=== PATIENT | female | born 1970 | race Caucasian/White ===

== ENCOUNTER 2016-10-04 14:35 | Emergency (ER) | payer BC, OTHER, SELFPAY ==
[2016-10-04] MEDS ORDERED: Ketorolac 30 MG/ML SDV IVPUSH ONE (15:00)
[2016-10-04] MEDS ORDERED: Sodium Chloride 0.9% 1,000 ML IV ONE (15:00)
[2016-10-04] MEDS ORDERED: Ondansetron 4 MG/2 ML SDV IVPUSH ONE (15:00)
--- NOTE | 2016-10-04 15:01 | EDM.PDOC ---
ED HPI GENERAL MEDICAL PROBLEM - General Chief Complaint: Abdominal Pain Stated Complaint: UNK Time Seen by Provider: 10/04/16 15:00 Source of Information: Reports: Patient - History of Present Illness INITIAL COMMENTS - FREE TEXT/NARRATIVE: HISTORY AND PHYSICAL: History of present illness: [] Patient presents with abdominal pain intermittently over the last month over last couple days it has increased in severity for some time today shed 10 out of 10 lower abdominal crampy pain, 2 days prior she had loose stool this is resolved she has a normal formed stool no blood per rectum per patient Patient was seen in mind that through [facility] flat and upright abdomen was performed she was told that time she had constipation she has been using [id number] laxatives since Patient has also been trying a gluten-free diet No fever nausea vomiting chills sweats Review of systems: As per history of present illness and below otherwise all systems reviewed and negative. Past medical history: As per history of present illness and as reviewed below otherwise noncontributory. Surgical history: As per history of present illness and as reviewed below otherwise noncontributory. Social history: No reported history of drug or alcohol abuse. Family history: As per history of present illness and as reviewed below otherwise noncontributory. Physical exam: HEENT: Atraumatic, normocephalic, pupils reactive, negative for conjunctival pallor or scleral icterus, mucous membranes moist, throat clear, neck supple, nontender, trachea midline. Lungs: Clear to auscultation, breath sounds equal bilaterally, chest nontender. Heart: S1S2, regular, negative for clicks, rubs, or JVD. Abdomen: Soft, nondistended, nontender. Negative for masses or hepatosplenomegaly. Negative for costovertebral tenderness. Pelvis: Stable nontender. Genitourinary: Deferred. Rectal: Deferred. Extremities: Atraumatic, negative for cords or calf pain. Neurovascular unremarkable. Neuro: Awake, alert, oriented. Cranial nerves II through XII unremarkable. Cerebellum unremarkable. Motor and sensory unremarkable throughout. Exam nonfocal. Diagnostics: [] Lab as below CT abdomen pelvis with contrast Therapeutics: [] [id number] symptomatic therapy is discussed Impression: [] Abdominal pain Definitive disposition and diagnosis as appropriate pending reevaluation and review of above. Bilateral Lower Abdomen Pain Score (Numeric/FACES): 10 - Related Data Allergies Allergy/AdvReac Type Severity Reaction Status Date / Time No Known Allergies Allergy Verified 10/04/16 15:03 Home Meds: Home Meds Fluticasone Propionate [Flonase] 1 puff NASBOTH DAILY 10/04/16 [History] Levothyroxine Sodium [Synthroid] 112 mcg PO ACBREAKFAST 10/04/16 [History] Losartan/Hydrochlorothiazide [Losartan-HCTZ 50-12.5 MG] 1 each PO DAILY [History] PARoxetine [Paxil] 20 mg PO DAILY 10/04/16 [History] ED ROS GENERAL - Review of Systems Review Of Systems: ROS reveals no pertinent complaints other than HPI. ED EXAM, GENERAL - Physical Exam Exam: See Below Course - Vital Signs Last Recorded V/S: Last Vital Signs Temp 36.6 C 10/04/16 15:08 Pulse 72 10/04/16 15:08 Resp 16 10/04/16 15:08 BP 168/80 H 10/04/16 15:08 Pulse Ox 96 10/04/16 15:08 - Orders/Labs/Meds Orders: Active Orders 24 hr Category Date Time Status Abdomen Pelvis w Cont [CT] Stat Exams 10/04/16 15:36 Taken Labs: Laboratory Tests 10/04/16 10/04/16 10/04/16 Range/Units 15:08 15:08 16:25 WBC 7.26 (4.0-11.0) K/uL RBC 4.37 (4.30-5.90) M/uL Hgb 13.2 (12.0-16.0) g/dL Hct 40.3 (36.0-46.0) % MCV 92.2 (80.0-98.0) fL MCH 30.2 (27.0-32.0) pg MCHC 32.8 (31.0-37.0) g/dL RDW Std Deviation 46.2 (28.0-62.0) fl RDW Coeff of Arianne 14 (11.0-15.0) % Plt Count 297 (150-400) K/uL MPV 10.90 (7.40-12.00) fL Neut % (Auto) 63.6 (48.0-80.0) % Lymph % (Auto) 24.2 (16.0-40.0) % [place] % (Auto) 7.6 (0.0-15.0) % Eos % (Auto) 3.9 (0.0-7.0) % Baso % (Auto) 0.7 (0.0-1.5) % Neut # 4.6 (1.4-5.7) K/uL Lymph # 1.8 (0.6-2.4) K/uL [place] # 0.6 (0.0-0.8) K/uL Eos # 0.3 (0.0-0.7) K/uL Baso # 0.1 (0.0-0.1) K/uL Nucleated RBC % 0.0 /100WBC Nucleated RBCs # 0 K/uL Sodium 137 (136-146) mmol/L Potassium 3.7 (3.5-5.1) mmol/L Chloride 102 (98-110) mmol/L Carbon Dioxide 25 (21-31) mmol/L BUN 9 (6.0-23.0) mg/dL Creatinine 0.8 (0.6-1.5) mg/dL Est Cr Clr Drug Dosing 94.01 mL/min Estimated GFR (MDRD) > 60.0 ml/min Glucose 84 (60-110) mg/dL Calcium 9.2 (8.8-10.8) mg/dL Total Bilirubin 0.5 (0.1-1.5) mg/dL AST 19 (5-40) IU/L ALT 18 (8-54) IU/L Alkaline Phosphatase 84 (40-150) Total Protein 7.6 (6.0-8.0) g/dL Albumin 3.8 (3.5-5.0) g/dL Globulin 3.8 H (2.0-3.5) g/dL Albumin/Globulin Ratio 1.0 L (1.3-2.8) Amylase 65 (10-90) U/L Lipase 22 (7-80) U/L Urine Color Urine Appearance Urine pH (5.0-8.0) Ur Specific [place] (1.001-1.035) Urine Protein (NEGATIVE) mg/dL Urine Glucose (UA) (NEGATIVE) mg/dL Urine Ketones (NEGATIVE) mg/dL Urine Occult Blood (NEGATIVE) Urine Nitrite (NEGATIVE) Urine Bilirubin (NEGATIVE) Urine Urobilinogen (<2.0) EU/dL Ur Leukocyte Esterase (NEGATIVE) Urine RBC (0-2/HPF) Urine WBC (0-5/HPF) Ur Epithelial Cells (NONE-FEW) Urine Bacteria (NEGATIVE) Urine HCG, Qual NEGATIVE (NEGATIVE) 10/04/16 Range/Units 16:25 WBC (4.0-11.0) K/uL RBC (4.30-5.90) M/uL Hgb (12.0-16.0) g/dL Hct (36.0-46.0) % MCV (80.0-98.0) fL MCH (27.0-32.0) pg MCHC (31.0-37.0) g/dL RDW Std Deviation (28.0-62.0) fl RDW Coeff of Arianne (11.0-15.0) % Plt Count (150-400) K/uL MPV (7.40-12.00) fL Neut % (Auto) (48.0-80.0) % Lymph % (Auto) (16.0-40.0) % [place] % (Auto) (0.0-15.0) % Eos % (Auto) (0.0-7.0) % Baso % (Auto) (0.0-1.5) % Neut # (1.4-5.7) K/uL Lymph # (0.6-2.4) K/uL [place] # (0.0-0.8) K/uL Eos # (0.0-0.7) K/uL Baso # (0.0-0.1) K/uL Nucleated RBC % /100WBC Nucleated RBCs # K/uL Sodium (136-146) mmol/L Potassium (3.5-5.1) mmol/L Chloride (98-110) mmol/L Carbon Dioxide (21-31) mmol/L BUN (6.0-23.0) mg/dL Creatinine (0.6-1.5) mg/dL Est Cr Clr Drug Dosing mL/min Estimated GFR (MDRD) ml/min Glucose (60-110) mg/dL Calcium (8.8-10.8) mg/dL Total Bilirubin (0.1-1.5) mg/dL AST (5-40) IU/L ALT (8-54) IU/L Alkaline Phosphatase (40-150) Total Protein (6.0-8.0) g/dL Albumin (3.5-5.0) g/dL Globulin (2.0-3.5) g/dL Albumin/Globulin Ratio (1.3-2.8) Amylase (10-90) U/L Lipase (7-80) U/L Urine Color YELLOW Urine Appearance CLEAR Urine pH 6.0 (5.0-8.0) Ur Specific [place] 1.010 (1.001-1.035) Urine Protein NEGATIVE (NEGATIVE) mg/dL Urine Glucose (UA) NEGATIVE (NEGATIVE) mg/dL Urine Ketones NEGATIVE (NEGATIVE) mg/dL Urine Occult Blood NEGATIVE (NEGATIVE) Urine Nitrite NEGATIVE (NEGATIVE) Urine Bilirubin NEGATIVE (NEGATIVE) Urine Urobilinogen 0.2 (<2.0) EU/dL Ur Leukocyte Esterase NEGATIVE (NEGATIVE) Urine RBC NONE SEEN (0-2/HPF) Urine WBC 0-1 (0-5/HPF) Ur Epithelial Cells FEW (NONE-FEW) Urine Bacteria FEW (NEGATIVE) Urine HCG, Qual (NEGATIVE) Meds: Medications Discontinued Medications Generic Name Dose Route Start Last Admin Trade Name Freq PRN Reason Stop Dose Admin Sodium Chloride 1,000 mls @ 999 mls/hr 10/04/16 15:00 10/04/16 15:22 Normal Saline IV 10/04/16 16:00 999 mls/hr STAT ONE Administration Iopamidol 100 ml 10/04/16 17:00 10/04/16 17:35 Isovue-370 (76%) IVPUSH 10/04/16 17:01 100 ml ONETIME STA Administration Ketorolac Tromethamine 30 mg 10/04/16 15:00 10/04/16 15:25 Toradol IVPUSH 10/04/16 15:01 30 mg ONETIME ONE Administration Ondansetron HCl 8 mg 10/04/16 15:00 10/04/16 15:23 Zofran IVPUSH 10/04/16 15:01 8 mg ONETIME ONE Administration Departure - Departure Time of Disposition: 18:01 Disposition: Home, Self-Care 01 Condition: good Clinical Impression: Abdominal pain Forms: ED Department Discharge Additional Instructions: [id number] symptomatic therapies as discussed Return if symptoms persist or worsen Followup with primary care in 2 weeks sooner as needed The following information is given to patients seen in the emergency department who are being discharged to home. This information is to outline your options for follow-up care. We provide all patients seen in our emergency department with a follow-up referral. The need for follow-up, as well as the timing and circumstances, are variable depending upon the specifics of your emergency department visit. If you don't have a primary care physician on staff, we will provide you with a referral. We always advise you to contact your personal physician following an emergency department visit to inform them of the circumstance of the visit and for follow-up with them and/or the need for any referrals to a consulting specialist. The emergency department will also refer you to a specialist when appropriate. This referral assures that you have the opportunity for follow-up care with a specialist. All of these measure are taken in an effort to provide you with optimal care, which includes your follow-up. Under all circumstances we always encourage you to contact your private physician who remains a resource for coordinating your care. When calling for follow-up care, please make the office aware that this follow-up is from your recent emergency room visit. If for any reason you are refused follow-up, please contact the [facility] emergency department at and asked to speak to the emergency department charge nurse. - My Orders Last 24 Hours: My Active Orders 10/04/16 15:36 Abdomen Pelvis w Cont [CT] Stat - Assessment/Plan Last 24 Hours: My Active Orders 10/04/16 15:36 Abdomen Pelvis w Cont [CT] Stat
[2016-10-04 15:13] VITALS: BP 168/80
[2016-10-04 15:38] LABS: CHLORIDE,CL 102 mmol/L (98-110); SODIUM,NA 137 mmol/L (136-146)
[2016-10-04] MEDS ORDERED: Iopamidol 755 Mg/ML 100 ML Bottle IVPUSH STA (17:00)
--- NOTE | 2016-10-06 17:50 | CT ---
EXAM DATE: 10/04/16 PATIENT'S AGE: 45 Patient: MICAELA SCHULZ Facility: [place], [place] Site . Site : [id number] Study: CT Abdomen/Pelvis [id number] 5:26:11 PM Ordering Physician: Ronny Solorzano Final Report: INDICATION: Low abdominal pain for 1 month. Technique: Volumetric CT acquisition of the abdomen and pelvis following the administration of 100 mL Isovue-370 intravenous contrast. Multiplanar reconstruction. Findings: The lung bases are clear. The liver and spleen are normal in size and without focal abnormality. No dilatation of the biliary system. The gallbladder is present. The pancreas and adrenal glands are normal. The kidneys are normal in size, shape, and position. Both kidneys are functioning. No hydronephrosis. No renal masses or focal parenchymal abnormalities. The ureters normal in course and caliber. Abdominal aorta normal in caliber. No para aortic or retrocrural lymphadenopathy. Normal bowel gas pattern. No inflammatory changes involving the bowel. Normal appendix. The uterus is present. Fallopian tube devices appropriately placed. The urinary bladder has a smooth contour. No free fluid in the abdomen and pelvis. No acute bony abnormalities. Impression : No acute findings in the abdomen and pelvis. Dictated by Latrell Odom MD @ Oct 04 2016 5:38PM (Electronic Signature) Report Signed by Proxy and Original Signed Document filed in the Medical Record. MARIAJOSE
== END 2016-10-04 18:21 | disposition home or self-care (01) ==
LOC: MW.ED 14:35
DX: R10.31 Right lower quadrant pain (principal); R10.32 Left lower quadrant pain; Z79.899 Other long term (current) drug therapy
CPT/HCPCS: 36415; 74177; 80053; 81001; 81025; 82150; 83690; 85025; 96361; 96374; 96375; 99284; J1885; J2405; J7040; Q9967